=== PATIENT | female | born 1975 | race American Indian/Alaskan Native ===

== ENCOUNTER 2019-08-22 06:27 | Observation (INO) | payer OTHER ==
[2019-08-22 07:19] LABS: Basophils # (Auto) 0.1 K/mm3 (0.0-0.1); Basophils % (Auto) 1.1 % (0.0-1.8); Eosinophils # (Auto) 0.4 K/mm3 (0.0-0.4); Hematocrit 38.4 % (30.3-42.9); Hemoglobin 12.3 gm/dl (10.1-14.3); Lymphocytes # (Auto) 2.3 K/mm3 (1.2-5.4); Lymphocytes % (Auto) 29.1 % (13.4-35.0); Mean Corpuscular HGB Conc 32 % (30-34); Mean Corpuscular Volume 88 fl (79-97); Monocytes # (Auto) 0.6 K/mm3 (0.0-0.8); Monocytes % (Auto) 7.5 % (0.0-7.3); Platelet Count 281 K/mm3 (140-440); Red Blood Count 4.35 M/mm3 (3.65-5.03); Red Cell Distribution Width 14.1 % (13.2-15.2)
[2019-08-22 07:35] LABS: BUN/Creatinine Ratio 9; Blood Urea Nitrogen 6 mg/dL (7-17); Calcium 9.2 mg/dL (8.4-10.2); Hemolysis Index 7
[2019-08-22 08:06] LABS: INR 1.17 (0.87-1.13)
[2019-08-22 08:09] LABS: Alanine Aminotransferase 10 units/L (7-56); Albumin 4.1 g/dL (3.9-5)
[2019-08-22 08:10] LABS: Bilirubin,Direct < 0.2 mg/dL (0-0.2)
--- NOTE | 2019-08-22 08:20 | Emergency Department Report ---
ED Chest Pain HPI - General Chief Complaint: Chest Pain Stated Complaint: CHEST PAIN Time Seen by Provider: 08/22/19 07:27 Source: patient Mode of arrival: Ambulatory Limitations: No Limitations - History of Present Illness Initial Comments: 43-year-old female complains of chest pain intermittently since evening. She states it occurred at rest. She describes it as somewhat sharp and told triage that it radiated to the back. She does not complain of any abdominal pain. She is not complaining of back pain to me now. The pain is nonpleuritic in nature. She does not complain of associated shortness of breath and sweating nausea or cough. She has no prior history of workup for chest pain. There's been no recent travel nor any leg pain or swelling. She states she has an aunt with CHF but otherwise does not identify any premature coronary artery disease or venous thromboembolism in her family. She has a history of hypertension. Initially she thought her pain was due to reflux so she took omeprazole. This was of no benefit. She has a history of rheumatoid arthritis and is on Humira and Imuran. Although the patient did tell me she has never had any previous workup for chest pain, she was admitted here in chest pain was among her complaints as per the discharge summary. In addition she had a CTA which was negative for PE and aortic dissection in 2014. Hospitalization Reason for admission: cellulitis of anterior abdominal wall, chest pain Condition: Good Pertinent studies: Nuclear medicine myocardial perfusion scan Echocardiogram CT scan of the abdomen and pelvis Hospital course: Details please refer to H&P dictated on 07/07/2014 in brief patient is a 38-year-old female with history of rheumatoid arthritis who presented to the emergency room with complaints of chest pain as well as drainage from her umbilicus She was worked up further with a nuclear medicine myocardial perfusion scan which did not show any evidence of reversible ischemia and echocardiogram showed preserved ejection fraction of 55-60%, she underwent a CT scan of the abdomen and pelvis which showed inferolateral changes involving the skin around her umbilicus consistent with cellulitis with a small incidental clinical hernia with adipose tissue with no evidence of any abscess formation or any obstruction She was subsequently started on IV vancomycin and was closely monitored for any signs of abscess formation or fever as cultures had been negative and given the clinical improvement was transitioned to oral Levaquin and discharged home in stable medical condition on 07/14/2014 35 minutes was spent arranging for discharge He would follow up with her primary care physicians and specialists service at [place] given that she has chronic GI concerns she is recommended to follow-up with them for any further recommended workup including benefit of endoscopy, Disposition: DISCHARGED TO HOME OR SELFCARE - Discharge Diagnoses (1) Cellulitis Status: Acute (2) Chest pain Status: Acute (3) Hypertension Status: Chronic (4) Rheumatoid arthritis Status: Chronic (5) DVT prophylaxis Status: Acute (6) Discharge planning issues Status: Acute MD Complaint: chest pain -: Gradual Onset: during rest Pain Location: substernal Pain Radiation: back Severity: moderate Quality: sharp Consistency: intermittent Improves With: nothing Worsens With: nothing re: denies: nausea, vomting, diaphoresis Other Symptoms: denies: cough, fever, syncope Treatments Prior to Arrival: other (described) Aspirin use within the Past 7 Days: (0) No - Related Data Home Medications Medication Instructions Recorded Confirmed Last Taken Adalimumab [Humira] 40 mg SQ Q14D 07/07/14 07/07/14 Unknown Calcium Carbonate/Vitamin D3 1 each PO QDAY 07/07/14 07/07/14 Unknown [Calcium 600-Vit D3 400 Tablet] Cetirizine HCl [ZyrTEC 10mg cap] 10 mg PO QDAY 07/07/14 07/07/14 Unknown Cholecalciferol (Vitamin D3) 1,000 unit PO DAILY 07/07/14 07/07/14 Unknown [Vitamin D3] Folic Acid [Folvite] 1 mg PO QDAY 07/07/14 07/07/14 Unknown Ketoconazole [Nizoral] 120 ml TP QDAY 07/07/14 07/07/14 Unknown Lisinopril [Zestril TAB] 10 mg PO QHS 07/07/14 07/07/14 Unknown Naproxen [Naprosyn TAB] 500 mg PO BID 07/07/14 07/07/14 Unknown metHOTREXate(DOSE WEEKLY ONLY) 2.5 mg PO QWEEK 07/07/14 07/07/14 Unknown [metHOTREXate (DOSE WEEKLY ONLY)] Previous Rx's Medication Instructions Recorded Last Taken Type levoFLOXacin [Levaquin TAB] 500 mg PO Q24HR #5 tablet 07/14/14 Unknown Rx Cyclobenzaprine [Flexeril 10mg] 10 mg PO Q8H PRN #21 tablet 01/28/15 Unknown Rx HYDROcodone/APAP 10-325 [[place] 1 each PO Q6HR PRN #20 tablet 01/28/15 Unknown Rx 10/325] Cyclobenzaprine [Flexeril 10mg] 10 mg PO TID PRN #10 tablet 02/01/15 Unknown Rx Gentamicin 0.3% Ophth Oint 1 applicatio OP Q4H #1 tube 02/01/15 Unknown Rx HYDROcodone/APAP 5-325 [[place] 1 - 2 each PO Q6HR PRN #10 tablet 02/01/15 Unknown Rx 5/325] Ibuprofen [Motrin 800 MG tab] 800 mg PO Q8H PRN #20 tablet 02/01/15 Unknown Rx traMADol [Ultram 50 MG tab] 50 mg PO Q8HR PRN #20 tablet 08/10/15 Unknown Rx Allergies Allergy/AdvReac Type Severity Reaction Status Date / Time No Known Allergies Allergy Verified 07/06/14 22:55 Heart Score - HEART Score History: Slightly suspicious EKG: Non-specific Age: < 45 Risk factors: 1-2 risk factors Troponin: < normal limit HEART Score: 2 - Critical Actions Critical Actions: 0-3 pts:0.9-1.7%risk of adverse cardiac event.Candidate for discharge ED Review of Systems ROS: Stated complaint: CHEST PAIN Other details as noted in HPI Constitutional: denies: chills, fever Eyes: denies: eye pain, eye discharge, vision change ENT: denies: ear pain, throat pain Respiratory: denies: cough, shortness of breath, wheezing Cardiovascular: chest pain. denies: palpitations Endocrine: no symptoms reported Gastrointestinal: denies: abdominal pain, nausea, diarrhea Genitourinary: denies: urgency, dysuria, discharge Musculoskeletal: back pain. denies: joint swelling, arthralgia Skin: denies: rash, lesions Neurological: denies: headache, weakness, paresthesias Psychiatric: denies: anxiety, depression Hematological/Lymphatic: denies: easy bleeding, easy bruising ED Past Medical Hx - Past Medical History Previous Medical History?: Yes Hx Hypertension: Yes Hx Deep Vein Thrombosis: No Hx GERD: Yes Hx Arthritis: Yes (RA) Hx Seizures: Yes - Surgical History Past Surgical History?: No Hx Pacemaker: No Hx Internal Defibrillator: No - Social History Smoking Status: Never Smoker Substance Use Type: None - Medications Home Medications: Home Medications Medication Instructions Recorded Confirmed Last Taken Type Adalimumab [Humira] 40 mg SQ Q14D 07/07/14 07/07/14 Unknown History Calcium Carbonate/Vitamin D3 1 each PO QDAY 07/07/14 07/07/14 Unknown History [Calcium 600-Vit D3 400 Tablet] Cetirizine HCl [ZyrTEC 10mg cap] 10 mg PO QDAY 07/07/14 07/07/14 Unknown History Cholecalciferol (Vitamin D3) 1,000 unit PO DAILY 07/07/14 07/07/14 Unknown History [Vitamin D3] Folic Acid [Folvite] 1 mg PO QDAY 07/07/14 07/07/14 Unknown History Ketoconazole [Nizoral] 120 ml TP QDAY 07/07/14 07/07/14 Unknown History Lisinopril [Zestril TAB] 10 mg PO QHS 07/07/14 07/07/14 Unknown History Naproxen [Naprosyn TAB] 500 mg PO BID 07/07/14 07/07/14 Unknown History metHOTREXate(DOSE WEEKLY ONLY) 2.5 mg PO QWEEK 07/07/14 07/07/14 Unknown History [metHOTREXate (DOSE WEEKLY ONLY)] levoFLOXacin [Levaquin TAB] 500 mg PO Q24HR #5 tablet 07/14/14 Unknown Rx Cyclobenzaprine [Flexeril 10mg] 10 mg PO Q8H PRN #21 tablet 01/28/15 Unknown Rx HYDROcodone/APAP 10-325 [[place] 1 each PO Q6HR PRN #20 tablet 01/28/15 Unknown Rx 10/325] Cyclobenzaprine [Flexeril 10mg] 10 mg PO TID PRN #10 tablet 02/01/15 Unknown Rx Gentamicin 0.3% Ophth Oint 1 applicatio OP Q4H #1 tube 02/01/15 Unknown Rx HYDROcodone/APAP 5-325 [[place] 1 - 2 each PO Q6HR PRN #10 tablet 02/01/15 Unknown Rx 5/325] Ibuprofen [Motrin 800 MG tab] 800 mg PO Q8H PRN #20 tablet 02/01/15 Unknown Rx traMADol [Ultram 50 MG tab] 50 mg PO Q8HR PRN #20 tablet 08/10/15 Unknown Rx ED Physical Exam - General Limitations: No Limitations General appearance: alert, in no apparent distress - Head Head exam: Present: atraumatic, normocephalic - Eye Eye exam: Present: normal appearance. Absent: scleral icterus - ENT ENT exam: Present: mucous membranes moist - Neck Neck exam: Present: normal inspection - Respiratory Respiratory exam: Present: normal lung sounds bilaterally. Absent: respiratory distress - Cardiovascular Cardiovascular Exam: Present: regular rate, normal rhythm. Absent: systolic murmur, diastolic murmur, rubs, gallop - GI/Abdominal GI/Abdominal exam: Present: soft, normal bowel sounds. Absent: distended, tenderness, guarding, rebound, rigid - Extremities Exam Extremities exam: Present: normal inspection - Back Exam Back exam: Present: normal inspection - Neurological Exam Neurological exam: Present: alert, oriented X3, CN II-XII intact. Absent: motor sensory deficit - Psychiatric Psychiatric exam: Present: normal affect, normal mood - Skin Skin exam: Present: warm, dry, intact, normal color. Absent: rash ED Course Vital Signs 08/22/19 08/22/19 06:33 08:48 Temperature 98.2 F Pulse Rate 96 H 74 Respiratory 18 16 Rate Blood Pressure 146/96 Blood Pressure 146/71 [Left] O2 Sat by Pulse 98 100 Oximetry - Reevaluation(s) Reevaluation #1: Discussed with hospitalist staff. Patient is pending nuclear medicine study. She complains of no shortness of breath at this point. She is hemodynamically stable. Her chest x-ray shows normal mediastinum. She will be admitted for further care and evaluation. She has no proximal access and a CTA is impossible at this point. It should be noted that the patient had a normal CTA in 2014. 08/22/19 09:07 EMILY score - Emily Score Age > 65: (0) No Aspirin use within the Past 7 Days: (0) No 3 or more CAD Risk Factors: (0) No 2 or more Angina events in past 24 hrs: (0) No Known CAD with more than 50% Stenosis: (0) No Elevated Cardiac Markers: (0) No ST Deviation Greater than 0.5mm: (0) No EMILY Score: 0 ED Medical Decision Making - Lab Data Result diagrams: 08/22/19 06:53 08/22/19 06:53 Laboratory Results - last 24 hr 08/22/19 08/22/19 08/22/19 06:53 06:53 06:53 WBC 7.8 RBC 4.35 Hgb 12.3 Hct 38.4 MCV 88 MCH 28 MCHC 32 RDW 14.1 Plt Count 281 Lymph % (Auto) 29.1 [place] % (Auto) 7.5 H Eos % (Auto) 5.0 H Baso % (Auto) 1.1 Lymph # 2.3 [place] # 0.6 Eos # 0.4 Baso # 0.1 Seg Neutrophils % 57.3 Seg Neutrophils # 4.5 PT INR APTT D-Dimer Sodium 142 Potassium 4.1 Chloride 104.6 Carbon Dioxide 26 Anion Gap 16 BUN 6 L Creatinine 0.7 Estimated GFR > 60 BUN/Creatinine Ratio 9 Glucose 101 H Calcium 9.2 Magnesium Total Bilirubin Direct Bilirubin Indirect Bilirubin AST ALT Alkaline Phosphatase Troponin T < 0.010 NT-Pro-B Natriuret Pep Total Protein Albumin Albumin/Globulin Ratio Lipase HCG, Qual Negative 08/22/19 08/22/19 08/22/19 07:48 07:55 07:55 WBC RBC Hgb Hct MCV MCH MCHC RDW Plt Count Lymph % (Auto) [place] % (Auto) Eos % (Auto) Baso % (Auto) Lymph # [place] # Eos # Baso # Seg Neutrophils % Seg Neutrophils # PT 14.8 INR 1.17 H APTT 20.0 L D-Dimer 1631.36 H Sodium Potassium Chloride Carbon Dioxide Anion Gap BUN Creatinine Estimated GFR BUN/Creatinine Ratio Glucose Calcium Magnesium 2.10 Total Bilirubin 0.40 Direct Bilirubin < 0.2 Indirect Bilirubin 0.2 AST 12 ALT 10 Alkaline Phosphatase 110 Troponin T NT-Pro-B Natriuret Pep 202.5 Total Protein 8.1 Albumin 4.1 Albumin/Globulin Ratio 1.0 Lipase 28 HCG, Qual - EKG Data -: EKG Interpreted by Ms EKG shows normal: sinus rhythm, axis, intervals Rate: normal - EKG Data Interpretation: nonspecific ST-T wave krupa, other (somewhat low voltage) - Radiology Data Radiology results: image reviewed (chest x-ray normal mediastinum, no acute process) Critical care attestation.: If time is entered above; I have spent that time in minutes in the direct care of this critically ill patient, excluding procedure time. ED Disposition Clinical Impression: Elevated d-dimer Chest pain Qualifiers: Chest pain type: unspecified Qualified Code(s): R07.9 - Chest pain, unspecified Rheumatoid arthritis Qualifiers: Rheumatoid arthritis location: unspecified site Rheumatoid factor presence: unspecified presence Qualified Code(s): M06.9 - Rheumatoid arthritis, unspecified Disposition: OP ADMIT IP TO THIS HOSP Is pt being admited?: Yes Does the pt Need Aspirin: Yes Condition: Stable Instructions: Chest Pain (ED) Referrals: PRIMARY CARE, [Primary Care Provider] - 3-5 Days Time of Disposition: :08
--- NOTE | 2019-08-22 08:35 | XRay Report ---
CHEST 1 VIEW INDICATION: Chest Pain. COMPARISON: 08/10/2015 FINDINGS: Support devices: None. Heart: Within normal limits. Lungs/Pleura: No acute air space or interstitial disease. Additional findings: None. IMPRESSION: 1. No acute findings. Signer Name: Almas Rivas MD Signed: 08/22/2019 8:31 AM Workstation Name: [email or web address]
[2019-08-22] MEDS ORDERED: ONDANSETRON 4 MG/2 ML INJ IV ONE (08:38)
[2019-08-22] MEDS ORDERED: MORPHINE 2 MG/1 ML INJ IV ONE (08:38)
[2019-08-22] MEDS ORDERED: ASPIRIN 325 MG TAB PO ONE (09:08)
--- NOTE | 2019-08-22 11:28 | History and Physical Report ---
History of Present Illness Date of examination: 08/22/19 Date of admission: 08/22/19 09:08 Chief complaint: Chest pains History of present illness: Patient is a 43-year-old AA woman with a history of GERD, RA, hypertension and cellulitis who presents to [facility] ED with constant sharp severe chest pains that radiates to the back that started evening. At that time the chest pains was intermittent. There is not aggravating or relieving factors. She thought is was acid reflux so she took omeprazole without relief. She denies sob, n/v, abdominal pains, trauma, long distance travel or cough. Past Medical History: hypertension, seizures (last seizure >20 years ago), Rheumatoid arthritis on Humira and MTX per Dr. Christal Hodges, [facility] Past Surgical History: Denies surgical history Social history: (Lives with ). denies: smoking, alcohol abuse, prescription drug abuse, IV drug use Family history: hypertension, dad of CVA late 50s or early 60s, mother in an accident ROS: Constitutional: denies: fever ENT: denies: throat or neck pain Respiratory: denies: cough, shortness of breath Cardiovascular: + chest pain Endocrine: denies unexplained weight loss or gain Gastrointestinal: denies: abdominal pain, nausea Genitourinary: denies: dysuria Rectal: denies no incontinence, no bleeding, no itching, no discharge Musculoskeletal: denies swelling, myaglia, muscle weakness +RA Skin: denies: rash Neurological: denies: headache Hematological/Lymphatic: denies: easy bleeding or easy bruising Allergic/Immunologic: no urticaria, no allergic rhinitis, no anaphylaxis Psych: denies sadness or hopelessness, SI/HI Medications and Allergies Allergies Allergy/AdvReac Type Severity Reaction Status Date / Time No Known Allergies Allergy Verified 07/06/14 22:55 Home Medications Medication Instructions Recorded Confirmed Last Taken Type Adalimumab [Humira] 40 mg SQ Q14D 07/07/14 07/07/14 Unknown History Calcium Carbonate/Vitamin D3 1 each PO QDAY 07/07/14 07/07/14 Unknown History [Calcium 600-Vit D3 400 Tablet] Cetirizine HCl [ZyrTEC 10mg cap] 10 mg PO QDAY 07/07/14 07/07/14 Unknown History Cholecalciferol (Vitamin D3) 1,000 unit PO DAILY 07/07/14 07/07/14 Unknown History [Vitamin D3] Folic Acid [Folvite] 1 mg PO QDAY 07/07/14 07/07/14 Unknown History Ketoconazole [Nizoral] 120 ml TP QDAY 07/07/14 07/07/14 Unknown History Lisinopril [Zestril TAB] 10 mg PO QHS 07/07/14 07/07/14 Unknown History Naproxen [Naprosyn TAB] 500 mg PO BID 07/07/14 07/07/14 Unknown History metHOTREXate(DOSE WEEKLY ONLY) 2.5 mg PO QWEEK 07/07/14 07/07/14 Unknown History [metHOTREXate (DOSE WEEKLY ONLY)] levoFLOXacin [Levaquin TAB] 500 mg PO Q24HR #5 tablet 07/14/14 Unknown Rx Cyclobenzaprine [Flexeril 10mg] 10 mg PO Q8H PRN #21 tablet 01/28/15 Unknown Rx HYDROcodone/APAP 10-325 [[place] 1 each PO Q6HR PRN #20 tablet 01/28/15 Unknown Rx 10/325] Cyclobenzaprine [Flexeril 10mg] 10 mg PO TID PRN #10 tablet 02/01/15 Unknown Rx Gentamicin 0.3% Ophth Oint 1 applicatio OP Q4H #1 tube 02/01/15 Unknown Rx HYDROcodone/APAP 5-325 [[place] 1 - 2 each PO Q6HR PRN #10 tablet 02/01/15 Unknown Rx 5/325] Ibuprofen [Motrin 800 MG tab] 800 mg PO Q8H PRN #20 tablet 02/01/15 Unknown Rx traMADol [Ultram 50 MG tab] 50 mg PO Q8HR PRN #20 tablet 08/10/15 Unknown Rx Exam - Physical Exam Narrative exam: Gen: WDWN, NAD, Awake, Alert, Orientated HEENT: NCAT, EOMI, PERRL, OP dentures with whitish substance (pt says it is glue for Dentures) Neck: supple, no adenopathy, no thyromegaly, no JVD CVS/Heart: RRR, normal S1S2, pulses present bilaterally Chest/Lungs: CTA B, Symmetrical chest expansion, good air entry bilaterally, reproducible chest wall tenderness GI/Abdomen: soft, NTND, good bowel sounds, no guarding or rebound /Bladder: no suprapubic tenderness, no CVA or paraspinal tenderness Extermity/Skin: no c/c/e, no obvious rash MSK: FROM x 4 Neuro: CN 2-12 grossly intact, no new focal deficits Psych: calm - Constitutional Vitals: Temp Pulse Resp BP Pulse Ox 98.2 F 74 16 146/71 100 08/22/19 06:33 08/22/19 08:48 08/22/19 08:48 08/22/19 08:48 08/22/19 08:48 Results - Labs CBC & Chem 7: 08/22/19 06:53 08/22/19 06:53 Labs: Abnormal lab results 08/22/19 08/22/19 08/22/19 Range/Units 06:53 06:53 07:48 [place] % (Auto) 7.5 H (0.0-7.3) % Eos % (Auto) 5.0 H (0.0-4.3) % INR 1.17 H (0.87-1.13) APTT 20.0 L (24.2-36.6) Sec. D-Dimer 1631.36 H (0-234) ng/mlDDU BUN 6 L (7-17) mg/dL Glucose 101 H (65-100) mg/dL Assessment and Plan Patient is a 43-year-old AA woman with a history of GERD, RA, hypertension and cellulitis who presents to [facility] ED with constant sharp severe chest pains that radiates to the back that started evening. At that time the chest pains was intermittent. There is not aggravating or relieving factors. She thought is was acid reflux so she took omeprazole without relief. She denies sob, n/v, abdominal pains, trauma, long distance travel or cough. * pCXR reported no acute findings * Elevated D-dimer Chest pains, atypical: repeat troponin, told her stress test would be on Saturday, she is agreeable, she says IV morphine did not help, wants something stronger Elevated D-Dimer: get CTA chest, needs IV line, current IV line is in her right shoulder area. 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
[2019-08-22] MEDS ORDERED: ACETAMINOPHEN 325 MG TAB PO PRN (11:39)
[2019-08-22] MEDS ORDERED: ADALIMUMAB 40 MG SQ SCH (11:45)
[2019-08-22] MEDS: HYDROmorphone 1 MG/1 ML INJ IV PRN ×3 (13:01→22:58)
--- NOTE | 2019-08-22 16:03 | Cat Scan Report ---
CT ANGIOGRAPHY OF THE CHEST WITH INTRAVENOUS CONTRAST AND MULTIPLANAR MIP RECONSTRUCTIONS INDICATION / CLINICAL INFORMATION: Chest pain. TECHNIQUE: Axial CT images were obtained after injection of 95 cc Omnipaque 350 IV contrast using CTA protocol. 3 plane MIP / 3D reconstructions were produced. All CT scans at this location are performed using CT dose reduction for ALARA by means of automated exposure control. COMPARISON: None available. FINDINGS: There is good opacification of the pulmonary arterial system bilaterally without intraluminal filling defect to suggest acute PTE. The thoracic aorta is normal in caliber without dissection. No coronary artery calcification is seen. The tracheobronchial tree is normal. The lung parenchyma is clear. There is no evidence of adenopathy or effusion. There is an accessory spleen near the splenic hilum and distal pancreatic tail. The visualized upper abdomen is otherwise normal. No acute osseous abnormality is seen. IMPRESSION: No evidence of acute PTE. Signer Name: Gilbert Garcia MD Signed: 08/22/2019 3:59 PM Workstation Name: [id number]
[2019-08-22] MEDS: FOLIC ACID 1 MG TAB PO SCH (17:22)
[2019-08-22] MEDS: CHOLECALCIFEROL (VIT D3) 1000 UNIT TAB PO SCH (17:22)
[2019-08-22] MEDS: PANTOPRAZOLE 40 MG TAB PO SCH (17:22)
[2019-08-22] MEDS: HYDROcodone/ACETAMINOPHEN 10-325MG TAB PO PRN ×2 (18:12→23:08)
[2019-08-23] MEDS: HYDROmorphone 1 MG/1 ML INJ IV PRN ×4 (03:33→20:31)
[2019-08-23] MEDS: HYDROcodone/ACETAMINOPHEN 10-325MG TAB PO PRN ×2 (06:02→23:07)
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
[2019-08-23] MEDS: ONDANSETRON 4 MG/2 ML INJ IV PRN ×3 (08:39→20:31)
[2019-08-23] MEDS: PANTOPRAZOLE 40 MG TAB PO SCH (09:12)
[2019-08-23] MEDS: FOLIC ACID 1 MG TAB PO SCH (09:12)
[2019-08-23] MEDS: CHOLECALCIFEROL (VIT D3) 1000 UNIT TAB PO SCH (09:12)
[2019-08-23 10:32] LABS: Hematocrit 40.3 % (30.3-42.9); Hemoglobin 13.1 gm/dl (10.1-14.3); Mean Corpuscular HGB Conc 32 % (30-34); Mean Corpuscular Volume 89 fl (79-97); Red Blood Count 4.55 M/mm3 (3.65-5.03); Red Cell Distribution Width 14.1 % (13.2-15.2)
[2019-08-23 11:35] LABS: Platelet Count 260 K/mm3 (140-440)
--- NOTE | 2019-08-23 11:42 | Consultation ---
History of Present Illness Consult date: 08/23/19 Consult reason: chest pain History of present illness: 43-year-old female with a past medical history of rheumatoid arthritis and hypertension presents to [facility] emergency department complaining of chest pain that she reports is radiating to her back. In the emergency department the patient had an elevated d-dimer she underwent a CT of the chest which was negative for pulmonary embolus or dissection. A 12-lead EKG was normal sinus rhythm with no acute ST segment changes. During hospitalization the patient continues to have chest and back discomfort which is reproducible on exam. Past History Past Medical History: GERD, other (rheumatoid arthritis) Past Surgical History: No surgical history Social history: denies: alcohol abuse, IV drug use Family history: diabetes Medications and Allergies Allergies Allergy/AdvReac Type Severity Reaction Status Date / Time No Known Allergies Allergy Verified 07/06/14 22:55 Home Medications Medication Instructions Recorded Confirmed Last Taken Type Adalimumab [Humira] 40 mg SQ Q14D 07/07/14 08/22/19 Unknown History Cholecalciferol (Vitamin D3) 1,000 unit PO DAILY 07/07/14 08/22/19 Unknown History [Vitamin D3] Folic Acid [Folvite] 1 mg PO QDAY 07/07/14 08/22/19 Unknown History Naproxen [Naprosyn TAB] 500 mg PO BID 07/07/14 08/22/19 Unknown History metHOTREXate(DOSE WEEKLY ONLY) 2.5 mg PO QWEEK 07/07/14 08/22/19 Unknown History [metHOTREXate (DOSE WEEKLY ONLY)] HYDROcodone/APAP 10-325 [[place] 1 each PO Q6HR PRN #20 tablet 01/28/15 08/22/19 Unknown Rx 10/325] traMADol [Ultram 50 MG tab] 50 mg PO Q8HR PRN #20 tablet 08/10/15 08/22/19 Unknown Rx Active Meds: Active Medications Acetaminophen (Tylenol) 650 mg PO Q6H PRN PRN Reason: Non Cardiac Pain or Temp>100.5 Acetaminophen/Hydrocodone Bitart ([place] 10/325) 1 each PO Q4H PRN PRN Reason: Pain , Severe (7-10) Last Admin: 08/23/19 06:02 Dose: 1 each Documented by: Cholecalciferol (Vitamin D3) 1,000 unit PO DAILY [facility] Last Admin: 08/23/19 09:12 Dose: 1,000 unit Documented by: Folic Acid (Folvite) 1 mg PO QDAY [facility] Last Admin: 08/23/19 09:12 Dose: 1 mg Documented by: Heparin Sodium (Porcine) (Heparin) 5,000 unit SUB-Q Q12HR [facility] Hydromorphone HCl (Dilaudid) 0.5 mg IV Q4H PRN PRN Reason: Pain , Severe (7-10) Last Admin: 08/23/19 08:38 Dose: 0.5 mg Documented by: Miscellaneous Medication (Adalimumab [Humira]) 40 mg SQ Q14D [facility] Ondansetron HCl (Zofran) 4 mg IV Q4H PRN PRN Reason: Nausea And Vomiting Last Admin: 08/23/19 08:39 Dose: 4 mg Documented by: Pantoprazole Sodium (Protonix) 40 mg PO QDAY [facility] Last Admin: 08/23/19 09:12 Dose: 40 mg Documented by: Review of Systems Constitutional: no weight loss, no weight gain, no fever, no chills Breasts: deferred Cardiovascular: chest pain, no orthopnea, no palpitations, no edema, no syncope, no lightheadedness, no shortness of breath Respiratory: no cough, no hemoptysis Gastrointestinal: no abdominal pain, no nausea, no vomiting Genitourinary Female: no flank pain, no dysuria Rectal: no pain, no incontinence Musculoskeletal: no neck pain, no shooting leg pain Integumentary: no rash, no pruritis Neurological: no head injury, no weakness Psychiatric: no anxiety, no memory loss Physical Examination Vital Signs Temp Pulse Resp BP Pulse Ox 98.2 F 96 H 18 146/96 98 08/22/19 06:33 08/22/19 06:33 08/22/19 06:33 08/22/19 06:33 08/22/19 06:33 General appearance: no acute distress, severe distress Neck: Positive: neck supple, trachea midline Cardiac: Positive: Reg Rate and Rhythm Lungs: Positive: clear to auscultation, Normal Breath Sounds Neuro: Positive: Grossly Intact Abdomen: Positive: Soft, Active Bowel Sounds Female genitourinary: deferred Skin: Negative: Rash Extremities: Present: warm. Absent: edema Results 08/23/19 10:10 08/22/19 06:53 CBC 10/27/19 Range/Units 10:10 WBC 8.3 (4.5-11.0) K/mm3 RBC 4.55 (3.65-5.03) M/mm3 Hgb 13.1 (10.1-14.3) gm/dl Hct 40.3 (30.3-42.9) % Plt Count 260 (140-440) K/mm3 EKG interpretations - Telemetry EKG Rhythm: Sinus Rhythm Assessment and Plan 43-year-old female past medical history of rheumatoid arthritis, GERD, and hyper tension who presents with atypical chest pain. Today the patient continues to complain of back pain which is reproducible on exam. The patient's chest pain she describes as a dull pressure has been constant. A CT of the chest was negative for pulmonary embolus or dissection. Recommend stress test in a.m.
[2019-08-23] MEDS ORDERED: diphenhydrAMINE 50 MG/ML VIAL IV PRN (22:12)
[2019-08-23] MEDS: HEPARIN 5,000 UNIT/1 ML VIAL SUB-Q SCH (22:13)
[2019-08-24] MEDS: HYDROmorphone 1 MG/1 ML INJ IV PRN ×2 (06:08→12:42)
[2019-08-24] MEDS: ONDANSETRON 4 MG/2 ML INJ IV PRN (06:08)
[2019-08-24] MEDS ORDERED: REGADENOSON 0.4 MG/5 ML INJ IV ONE ×2 (08:52→08:53)
[2019-08-24] MEDS ORDERED: AMINOPHYLLINE 500 MG/20 ML INJ IV ONE (09:28)
[2019-08-24] MEDS ORDERED: AMINOPHYLLINE IV ONE ×2 (09:30→10:30)
[2019-08-24] MEDS ORDERED: SODIUM CHLORIDE 0.9% IV ONE ×2 (09:30→10:30)
[2019-08-24 09:32] VITALS: BP 166/82
[2019-08-24] MEDS: PANTOPRAZOLE 40 MG TAB PO SCH (13:07)
[2019-08-24] MEDS: HEPARIN 5,000 UNIT/1 ML VIAL SUB-Q SCH (13:07)
[2019-08-24] MEDS: CHOLECALCIFEROL (VIT D3) 1000 UNIT TAB PO SCH (13:07)
[2019-08-24] MEDS: FOLIC ACID 1 MG TAB PO SCH (13:07)
--- NOTE | 2019-08-24 13:48 | Progress Note ---
Assessment and Plan Assessment and plan: Patient is a 43-year-old AA woman with a history of GERD, RA, hypertension and cellulitis who presents to [facility] ED with constant sharp severe chest pains that radiates to the back that started evening. At that time the chest pains was intermittent. There is not aggravating or relieving factors. She thought is was acid reflux so she took omeprazole without relief. She denies sob, n/v, abdominal pains, trauma, long distance travel or cough. 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 Follow-up on current diagnosis. No overnight events reported to me. Patient denies any chest pain, shortness breath, nausea/vomiting or severe headaches. Imaging, nursing note, chart, labs and old chart reviewed. Discussed with patient. Hospitalist Physical - Physical exam Narrative exam: Gen: WDWN, NAD, Awake, Alert, Orientated HEENT: NCAT, EOMI, PERRL, OP dentures with whitish substance (pt says it is glue for Dentures) Neck: supple, no adenopathy, no thyromegaly, no JVD CVS/Heart: RRR, normal S1S2, pulses present bilaterally Chest/Lungs: CTA B, Symmetrical chest expansion, good air entry bilaterally, reproducible chest wall tenderness GI/Abdomen: soft, NTND, good bowel sounds, no guarding or rebound /Bladder: no suprapubic tenderness, no CVA or paraspinal tenderness Extermity/Skin: no c/c/e, no obvious rash MSK: FROM x 4 Neuro: CN 2-12 grossly intact, no new focal deficits Psych: calm - Constitutional Vitals: Temp Pulse Resp BP Pulse Ox 98.1 F 85 18 166/82 100 08/24/19 03:24 08/24/19 03:24 08/24/19 06:38 08/24/19 09:10 08/24/19 03:24 General appearance: Present: no acute distress Results - Labs CBC & Chem 7: 08/23/19 10:10 08/22/19 06:53 Labs: Laboratory Last Values WBC 8.3 K/mm3 (4.5-11.0) 08/23/19 10:10 RBC 4.55 M/mm3 (3.65-5.03) 08/23/19 10:10 Hgb 13.1 gm/dl (10.1-14.3) 08/23/19 10:10 Hct 40.3 % (30.3-42.9) 08/23/19 10:10 MCV 89 fl (79-97) 08/23/19 10:10 MCH 29 pg (28-32) 08/23/19 10:10 MCHC 32 % (30-34) 08/23/19 10:10 RDW 14.1 % (13.2-15.2) 08/23/19 10:10 Plt Count 260 K/mm3 (140-440) 08/23/19 10:10 Lymph % (Auto) 29.1 % (13.4-35.0) 08/22/19 06:53 [place] % (Auto) 7.5 % (0.0-7.3) H 08/22/19 06:53 Eos % (Auto) 5.0 % (0.0-4.3) H 08/22/19 06:53 Baso % (Auto) 1.1 % (0.0-1.8) 08/22/19 06:53 Lymph # 2.3 K/mm3 (1.2-5.4) 08/22/19 06:53 [place] # 0.6 K/mm3 (0.0-0.8) 08/22/19 06:53 Eos # 0.4 K/mm3 (0.0-0.4) 08/22/19 06:53 Baso # 0.1 K/mm3 (0.0-0.1) 08/22/19 06:53 Seg Neutrophils % 57.3 % (40.0-70.0) 08/22/19 06:53 Seg Neutrophils # 4.5 K/mm3 (1.8-7.7) 08/22/19 06:53 PT 14.8 Sec. (12.2-14.9) 08/22/19 07:48 INR 1.17 (0.87-1.13) H 08/22/19 07:48 APTT 20.0 Sec. (24.2-36.6) L 08/22/19 07:48 D-Dimer 1631.36 ng/mlDDU (0-234) H 08/22/19 07:48 Sodium 142 mmol/L (137-145) 08/22/19 06:53 Potassium 4.1 mmol/L (3.6-5.0) 08/22/19 06:53 Chloride 104.6 mmol/L (98-107) 08/22/19 06:53 Carbon Dioxide 26 mmol/L (22-30) 08/22/19 06:53 Anion Gap 16 mmol/L 08/22/19 06:53 BUN 6 mg/dL (7-17) L 08/22/19 06:53 Creatinine 0.7 mg/dL (0.7-1.2) 08/22/19 06:53 Estimated GFR > 60 ml/min 08/22/19 06:53 BUN/Creatinine Ratio 9 % 08/22/19 06:53 Glucose 101 mg/dL (65-100) H 08/22/19 06:53 Calcium 9.2 mg/dL (8.4-10.2) 08/22/19 06:53 Magnesium 2.10 mg/dL (1.7-2.3) 08/22/19 07:55 Total Bilirubin 0.40 mg/dL (0.1-1.2) 08/22/19 07:55 Direct Bilirubin < 0.2 mg/dL (0-0.2) 08/22/19 07:55 Indirect Bilirubin 0.2 mg/dL 08/22/19 07:55 AST 12 units/L (5-40) 08/22/19 07:55 ALT 10 units/L (7-56) 08/22/19 07:55 Alkaline Phosphatase 110 units/L (35-129) 08/22/19 07:55 Troponin T < 0.010 ng/mL (0.00-0.029) 08/22/19 19:57 NT-Pro-B Natriuret Pep 202.5 pg/mL (0-450) 08/22/19 07:55 Total Protein 8.1 g/dL (6.3-8.2) 08/22/19 07:55 Albumin 4.1 g/dL (3.9-5) 08/22/19 07:55 Albumin/Globulin Ratio 1.0 % 08/22/19 07:55 Lipase 28 units/L (13-60) 08/22/19 07:55 HCG, Qual Negative (Negative) 08/22/19 06:53 Active Medications - Current Medications Current Medications: Generic Name Dose Route Start Last Admin Trade Name Freq PRN Reason Stop Dose Admin Acetaminophen 650 mg 08/22/19 11:39 Tylenol PO Q6H PRN Non Cardiac Pain or Temp>100.5 Acetaminophen/Hydrocodone Bitart 1 each 08/22/19 11:39 08/23/19 23:07 [place] 10/325 PO 1 each Q4H PRN Administration Pain , Severe (7-10) Cholecalciferol 1,000 unit 08/22/19 12:00 08/24/19 13:07 Vitamin D3 PO 1,000 unit DAILY PEREZ Administration Diphenhydramine HCl 25 mg 08/23/19 22:12 08/23/19 23:07 Benadryl IV 25 mg Q6H PRN Administration Itching Folic Acid 1 mg 08/22/19 12:00 08/24/19 13:07 Folvite PO 1 mg QDAY PEREZ Administration Heparin Sodium (Porcine) 5,000 unit 08/23/19 22:00 08/24/19 13:07 Heparin SUB-Q 5,000 unit Q12HR PEREZ Administration Hydromorphone HCl 0.5 mg 08/22/19 11:39 08/24/19 12:42 Dilaudid IV 0.5 mg Q4H PRN Administration Pain , Severe (7-10) Miscellaneous Medication 40 mg 08/22/19 11:45 Adalimumab [Humira] SQ Q14D PEREZ Ondansetron HCl 4 mg 08/22/19 11:39 08/24/19 06:08 Zofran IV 4 mg Q4H PRN Administration Nausea And Vomiting Pantoprazole Sodium 40 mg 08/22/19 12:00 08/24/19 13:07 Protonix PO 40 mg QDAY PEREZ Administration
--- NOTE | 2019-08-24 13:53 | Discharge Summary ---
Providers - Providers Date of Admission: 08/22/19 09:08 Date of discharge: 08/24/19 Attending physician: PIO STEPHENS 08/22/19 09:27 Consult to PICC Line RN [CONS] Stat Reason For Exam: need CTA chest line Type Line:: Midline 08/23/19 09:34 Consult to Physician [CONS] Routine Comment: Consulting Provider: DEWAYNE CARRILLO Physician Instructions: Reason For Exam: recurrent chest pains Primary care physician: ARCHITECTURAL EXAMINER Hospitalization Condition: Stable Hospital course: Patient is a 43-year-old AA woman with a history of GERD, RA, hypertension and cellulitis who presents to [facility] ED with constant sharp severe chest pains that radiates to the back that started evening. At that time the chest pains was intermittent. There is not aggravating or relieving factors. She thought is was acid reflux so she took omeprazole without relief. She denies sob, n/v, abdominal pains, trauma, long distance travel or cough. * pCXR reported no acute findings * Elevated D-dimer * CTA chest negative for PE Discharge Diagnoses: Chest pains, atypical, most likely costochrondritis, negative stress test Elevated D-Dimer: non-specific GERD: treat with ppi RA: continue home medications Hypertension: cardiac diet and treat with antihypertensives Morbid Obesity: dianetic counselor on lifestyle modification Whitish film on mouth, glue Disposition: DC-01 TO HOME OR SELFCARE Time spent for discharge: 35 minutes Core Measure Documentation - Palliative Care Palliative Care/ Comfort Measures: Not Applicable - Core Measures Any of the following diagnoses?: none - VTE Discharge Requirements Deep Vein Thrombosis/Pulmonary Embolism Present on Admission: No Has pt received <5 days of overlap therapy or INR<2.0: No Anticoagulant overlap therapy prescribed at discharge: No Contraindication No Overlap Therapy order at DC: Not Indicated Exam - Physical Exam Narrative exam: Gen: WDWN, NAD, Awake, Alert, Orientated HEENT: NCAT, EOMI, PERRL, OP dentures with whitish substance (pt says it is glue for Dentures) Neck: supple, no adenopathy, no thyromegaly, no JVD CVS/Heart: RRR, normal S1S2, pulses present bilaterally Chest/Lungs: CTA B, Symmetrical chest expansion, good air entry bilaterally, reproducible chest wall tenderness GI/Abdomen: soft, NTND, good bowel sounds, no guarding or rebound /Bladder: no suprapubic tenderness, no CVA or paraspinal tenderness Extermity/Skin: no c/c/e, no obvious rash MSK: FROM x 4 Neuro: CN 2-12 grossly intact, no new focal deficits Psych: calm - Constitutional Vitals: Temp Pulse Resp BP Pulse Ox 98.1 F 85 18 166/82 100 08/24/19 03:24 08/24/19 03:24 08/24/19 06:38 08/24/19 09:10 08/24/19 03:24 Plan Activity: other (no strenous activity unless cleared by PCP) Diet: low salt Follow up with: PRIMARY CARE, [Primary Care Provider] - 3-5 Days DEWAYNE CARRILLO MD [Staff Physician] - 7 Days Prescriptions: HYDROcodone/APAP 10-325 [[place] 10-325 mg TAB] 1 each PO Q6HR PRN #20 tablet PRN Reason: Pain , Severe (7-10) Pantoprazole [Protonix TAB] 40 mg PO QDAY #30 tablet
--- NOTE | 2019-08-24 14:22 | Progress Note ---
Assessment and Plan S/p lexiscan MPI stress test this AM which was negative. Chest pain currently resolved. Currently stable cardiac status. Obtain echo (r/o pericardial effusion/pericarditis in setting of RA). Pending echo reveals no gross abnormalities, pt may discharge home from cardiology standpoint. Recommend follow up in our office with Dr. Villanueva within 1-2 weeks ([phone]). The patient has been seen in conjunction with Dr. Zapata who agrees with the assessment and plan of care. - Patient Problems (1) Chest pain Current Visit: Yes Status: Resolved Qualifiers: Chest pain type: unspecified Qualified Code(s): R07.9 - Chest pain, unspecified (2) Rheumatoid arthritis Current Visit: Yes Status: Chronic Qualifiers: Rheumatoid arthritis location: unspecified site Rheumatoid factor presence: unspecified presence Qualified Code(s): M06.9 - Rheumatoid arthritis, unspecified (3) GERD (gastroesophageal reflux disease) Current Visit: Yes Status: Chronic (4) Hypertension Current Visit: Yes Status: Chronic Subjective Date of service: 08/24/19 Principal diagnosis: cp Interval history: for stress test today. Objective Last Vital Signs Temp 98.1 F 08/24/19 03:24 Pulse 85 08/24/19 03:24 Resp 18 08/24/19 06:38 BP 166/82 08/24/19 09:10 Pulse Ox 100 08/24/19 03:24 - Physical Examination General: No Apparent Distress HEENT: Positive: PERRL Neck: Positive: neck supple, trachea midline Cardiac: Positive: Reg Rate and Rhythm, S1/S2 Lungs: Positive: Decreased Breath Sounds Neuro: Positive: Grossly Intact Abdomen: Positive: Soft, Active Bowel Sounds Skin: Negative: Rash Extremities: Present: warm. Absent: edema
[2019-08-24] MEDS: HYDROcodone/ACETAMINOPHEN 10-325MG TAB PO PRN (18:54)
--- NOTE | 2019-08-25 05:03 | Treadmill Report ---
NUCLEAR PERFUSION STUDY REASON FOR STUDY: Dr. Naranjo. IMAGING PROTOCOL: The patient received 10 mCi of Technetium 99m Tetrofosmin for resting image and 28 mCi of Technetium 99m Tetrofosmin for stress imaging. The imaging for the whole procedure was completed 30-90 minutes following the initial injection of Technetium 99m Tetrofosmin. The SPECT imaging in the 180 degree arc was performed in the right anterior oblique projection. Computerized reconstruction of the images was performed for analysis. IMAGING RESULTS: Normal cavity size from stress to rest. Normal distribution of radionuclide in the anterior, inferior, septal and apical regions. Gated SPECT, EF 50% with no wall motion abnormality. The patient infused Lexiscan with no EKG changes. SUMMARY: 1. Negative Lexiscan EKG. 2. Normal rest and stress myocardial perfusion scan. No significant stress ischemia. No wall motion abnormality. Gated SPECT, EF 58%. JOB# [id number] MONIQUE/MALCOM
== END 2019-08-24 19:57 | disposition home or self-care (01) ==
LOC: ED 06:27 → 4A 09:08 → INTOOBSV 09:08
PROVIDERS: ADMIT Internal Medicine; ATTEND Internal Medicine
DX: R07.89 Other chest pain (principal); R74.8 Abnormal levels of other serum enzymes; K21.9 Gastro-esophageal reflux disease without esophagitis; I10 Essential (primary) hypertension; E66.01 Morbid (severe) obesity due to excess calories; Z68.43 Body mass index [BMI] 50.0-59.9, adult
CPT/HCPCS: 36415; 71045; 71275; 78452; 80048; 80076; 83690; 83735; 83880; 84484; 84703; 85025; 85027; 85379; 85610; 85730; 93005; 93010; 93017; 93306; 96365; 96372; 96375; 96376; 99284; A9502; G0378; J0280; J1170; J1200; J1644; J2270; J2405; J2785; Q9967; 96374